=== PATIENT | female | born 1975 | race Caucasian/White ===

== ENCOUNTER 2019-09-30 07:23 | Emergency (ER) | payer OTHER ==
[~2019-09-30] VITALS: Ht 157.4 cm; Wt 74.0 kg
--- NOTE | 2019-09-30 07:36 | ED General ---
General Chief Complaint: Trauma-Non Activation Stated Complaint: HEAD INJ History of Present Illness Date Seen by Provider: Sep 30, 2019 Time Seen by Provider: 07:35 Initial Comments Patient is a 44 y/o female who comes to the ER this morning c/o head injury. Patient was getting into her car when she slipped and fell on a patch of ice. She states she struck her head on the car and then again on the pavement. She sustained minor trauma to the right parietal area. No LOC. No nausea, vomiting, vision changes since the accident which happened 40 minutes prior to this interview. She also c/o muscle spasm in the low back. 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 No numbness, tingling, weakness in extremities. No trauma of extremities. No injury to or break in skin. Allergies and Home Medications Allergies Coded Allergies: amoxicillin (Verified Allergy, Unknown, 09/30/19) clarithromycin (Verified Allergy, Unknown, 09/30/19) clavulanic acid (Verified Allergy, Unknown, 09/30/19) Home Medications Cyclobenzaprine HCl 10 Mg Tablet, 10 MG PO Q8H PRN for SPASMS Prescribed by: TALHA AGOSTO on 09/30/19 0800 Hydrocodone/Acetaminophen 1 Each Tablet, 1 TAB PO Q4-6HR Prescribed by: TALHA AGOSTO on 09/30/19 0832 Patient Home Medication List Home Medication List Reviewed: Yes Review of Systems Review of Systems Constitutional: no symptoms reported Respiratory: no symptoms reported Cardiovascular: no symptoms reported Musculoskeletal: see HPI, back pain, neck pain Skin: no symptoms reported All Other Systems Reviewed Negative Unless Noted: Yes Past Imvnkxb-Kanack-Auiyks Hx Patient Social History Recent [facility]: [facility] Physical Exam Vital Signs Vital Signs - First Documented 09/30/19 07:28 Temp 36.7 Pulse 60 Resp 16 B/P (MAP) 135/82 (99) Pulse Ox 100 O2 Delivery Room Air Capillary Refill : Height, Weight, BMI Height: '" Weight: lbs. oz. kg; BMI Method: General Appearance: No Apparent Distress, WD/WN Eyes: Bilateral Eye Normal Inspection, Bilateral Eye PERRL HEENT: PERRL/EOMI, Normal ENT Inspection, Other (hematoma of scalp over right parietal area) Neck: Full Range of Motion, Supple, Other (TTP over paraspinal cervical neck muscles) Respiratory: Lungs Clear, Normal Breath Sounds Cardiovascular: Regular Rate, Rhythm, No Edema Extremity: Normal Capillary Refill, Normal Range of Motion Neurologic/Psychiatric: Alert, Oriented x3 Skin: Normal Color Progress/Results/Core Measures Suspected Sepsis SIRS Temperature: Pulse: Respiratory Rate: Blood Pressure / Mean: Results/Orders My Orders Orders - TALHA AGOSTO DO Ibuprofen Tablet (Motrin Tablet) (09/30/19 07:45) Diazepam Tablet (Valium Tablet) (09/30/19 07:45) Ct Head/Cervical Spine Wo (09/30/19 07:44) Medications Given in ED Current Medications Medications Dose Ordered Sig/Kip Route Start Time Stop Time Status Last Admin Dose Admin Diazepam 5 mg ONCE ONCE PO 09/30/19 07:45 09/30/19 07:47 DC 09/30/19 07:59 5 MG Vital Signs/I&O 09/30/19 07:28 Temp 36.7 Pulse 60 Resp 16 B/P (MAP) 135/82 (99) Pulse Ox 100 O2 Delivery Room Air Capillary Refill : Progress Note : Time: 07:51 Progress Note Patient is seen and examined. No acute distress. Minor hematoma over scalp. She c/o some cervical neck pain and head pain. She also endorses prior MRI findings suggestive of intracranial bleed. Today, we will to CT scan of neck and head w/o contrast. Motrin and PO valium are ordered for discomfort. 08:30: Patient refused motrin as she has gastric sleeve. CT scans reviewed and no acute findings. Patient is discharged home with Rx for flexeril and a few norco. Recommended to f/u with PCP as needed. No driving/working while using these meds. All of her questions are answered prior to discharge home. Departure Impression Primary Impression: Fall due to ice or snow Additional Impression: Scalp hematoma Disposition: 01 HOME, SELF-CARE Condition: Improved Departure-Patient Inst. Referrals: ANGUS CHRISTIAN MD (PCP/Family) Primary Care Physician Scripts Hydrocodone/Acetaminophen ([place] 5-325 Tablet) 1 Each Tablet 1 TAB PO Q4-6HR for Pain MDD 10 TABS for 7 Days, #10 TAB Prov: TALHA AGOSTO DO 09/30/19 Cyclobenzaprine HCl (Cyclobenzaprine HCl) 10 Mg Tablet 10 MG PO Q8H PRN for SPASMS, #21 TAB 0 Refills Prov: TALHA AGOSTO DO 09/30/19 TALHA AGOSTO DO Sep 30, 2019 07:36
[2019-09-30] MEDS ORDERED: DIAZEPAM 5 MG (VALIUM) TABLET PO ONE (07:45)
[2019-09-30] MEDS ORDERED: IBUPROFEN 800 MG (MOTRIN) TAB PO ONE (07:45)
[2019-09-30] MEDS ORDERED: IBUP-1780 PO (08:00)
[2019-09-30] MEDS ORDERED: CYCL10TA9 PO (08:00)
--- NOTE | 2019-09-30 08:25 | Diagnostic Imaging Report ---
PROCEDURE: CT head and CT cervical spine without contrast. TECHNIQUE: Multiple contiguous axial images were obtained through the brain and cervical spine without the use of intravenous contrast. Sagittal and coronal reformations through the cervical spine were then performed. Auto Exposure Controls were utilized during the CT exam to meet ALARA standards for radiation dose reduction. INDICATION: Fall with head and neck injury. No prior studies are available for comparison. CT HEAD: The ventricles and sulci are within normal limits. No sulcal effacement, midline shift or hemorrhage is detected. Cisterns are patent. Visualized paranasal sinuses are clear. No calvarial fracture is seen. IMPRESSION: No acute intracranial process is detected. CT cervical spine: Alignment is normal. No fracture or subluxation is identified. Prevertebral tissues are within normal limits. Odontoid is intact. IMPRESSION: No acute bony abnormality is detected. Dictated by: Dictated on workstation # [id number]
[2019-09-30] MEDS ORDERED: HYDR-4226 PO (08:32)
[2019-09-30 08:38] VITALS: BP 137/78
== END 2019-09-30 08:38 | disposition home or self-care (01) ==
LOC: ER FS 07:25
DX: S00.03XA Contusion of scalp, initial encounter (principal); Z88.0 Allergy status to penicillin; Z88.1 Allergy status to other antibiotic agents; W00.0XXA Fall on same level due to ice and snow, initial encounter
CPT/HCPCS: 70450; 72125

== ENCOUNTER → 2021-07-25 | Outpatient (CLI) | payer OTHER ==
[~2021-07-25] MED LIST: CYCL10TA9 PO; HYDR-4226 PO; IBUP-1780 PO
--- NOTE | 2021-07-25 11:48 | Diagnostic Imaging Report ---
CLINICAL INDICATION: Patient with left flank pain that radiates to left lower quadrant since last night. Patient has history of kidney stones. Patient had kidney stone removal x2, cholecystectomy, and gastric sleeve. EXAM: CT exam of the abdomen and pelvis is performed without IV or oral contrast using stone protocol. Coronal and sagittal reformatted images were created. Auto Exposure Controls were utilized during the CT exam to meet ALARA standards for radiation dose reduction. COMPARISONS: None. FINDINGS: The visualized lung bases are clear. There are degenerative spurs involving the lumbar spine. The gallbladder is surgically absent. The liver, spleen, pancreas, and adrenal glands are unremarkable. There is a 4 mm in greatest axial dimension x 7 mm in craniocaudal dimension stone within the proximal left ureter seen at the L3 vertebral body level. There is fat stranding adjacent to the proximal left ureter and mild left hydronephrosis. There is a punctate calcification involving the inferior pole of the right kidney which may be intraparenchymal. There are no other urinary tract stones seen. There is an 11 mm exophytic cyst involving the posterior aspect of the right kidney. Otherwise, both kidneys are unremarkable. There is no intra-abdominal free air or free fluid. The bladder is partially fluid filled and unremarkable. There is fluid within the endometrium. There is a roughly 15 mm circumscribed low-density area involving the left ovary which may represent a cyst. Uterus and adnexal regions are otherwise unremarkable. The appendix is unremarkable. There is no intestinal obstruction. Postop changes to the stomach consistent with gastroplasty seen. The extra-abdominal and extrapelvic soft tissue structures are unremarkable. IMPRESSION: 1: There is a 7 mm stone within the proximal left ureter with adjacent periureteral fat stranding and mild left hydronephrosis. 2: There are no other stones in the ureters seen. There is a punctate calcification involving the inferior portion of the right kidney which may be within the parenchyma. 3: There is a small exophytic cyst involving the right kidney. 4: There is a small cyst involving the left ovary. Dictated by: Dictated on workstation # [id number]
== END ==
LOC: RAD FS 11:11
PROVIDERS: ATTEND Family Medicine
DX: N13.2 Hydronephrosis with renal and ureteral calculous obstruction (principal); N28.1 Cyst of kidney, acquired; N83.202 Unspecified ovarian cyst, left side
CPT/HCPCS: 74176

== ENCOUNTER → 2021-07-27 | Outpatient (CLI) | payer OTHER ==
[~2021-07-27] MED LIST changes: +ACHD5005 PO; +CIPR-226 PO; +KETO10TA PO; +NITR-65 PO; +TMSL.4C PO
--- NOTE | 2021-07-27 14:35 | Diagnostic Imaging Report ---
INDICATION: Left ureteral stone COMPARISON: CT dated 07/25/2021 TECHNIQUE: Single radiograph of the abdomen dated 07/27/2020 FINDINGS: Surgical clips are again identified overlying the upper abdomen bilaterally. Chain suture is again seen overlying the left upper abdomen. There is suggestion of a 6 mm calcification overlying the left L3 transverse process. Given size, shape, and location, this is favored to relate to previously noted left ureterolith. No additional calcifications seen along the expected course of the bilateral ureters. Bilateral phleboliths are again identified within the pelvis. Nonobstructive bowel gas pattern. No free air. No acute osseous abnormality with minimal scattered degenerative changes present. IMPRESSION: Suggestion of a 6 mm calcification overlying the left L3 transverse process, which is favored to relate to previously noted proximal left ureterolith. Additional stable postsurgical and chronic findings as above. Dictated by: Dictated on workstation # [id number]
== END ==
LOC: RAD 10:11
PROVIDERS: ATTEND Urology
DX: N20.1 Calculus of ureter (principal)
CPT/HCPCS: 74018

== ENCOUNTER 2021-07-30 05:43 | Outpatient (CLI) | payer OTHER ==
[~2021-07-30] VITALS: Ht 157.5 cm; Wt 80.8 kg
[~2021-07-30 05:43] MED LIST changes: -ACHD5005 PO; -CIPR-226 PO; -KETO10TA PO; -NITR-65 PO; -TMSL.4C PO
[2021-07-30] MEDS ORDERED: CIPR-226 PO (08:40)
[2021-07-30] MEDS ORDERED: TMSL.4C PO (08:40)
[2021-07-30] MEDS ORDERED: ACHD5005 PO (08:40)
[2021-07-31] MEDS ORDERED: KETO10TA PO (09:22)
[2021-07-31] MEDS ORDERED: TMSL.4C PO (09:22)
[2021-07-31] MEDS ORDERED: NITR-65 PO (09:22)
== END 2021-07-30 09:28 | disposition home or self-care (01) ==
LOC: PREOP 05:43
PROVIDERS: ATTEND Urology
DX: Z01.818 Encounter for other preprocedural examination (principal)

== ENCOUNTER 2021-07-31 06:10 | Day surgery (SDC) | payer OTHER ==
[2021-07-31] VITALS (11 sets, daily range): BP systolic 98–116; BP diastolic 59–82
[~2021-07-31] VITALS: Ht 157 cm; Wt 80.8 kg
[~2021-07-31 06:10] MED LIST changes: +ACHD5005 PO; +CIPR-226 PO; +TMSL.4C PO
[2021-07-31] MEDS: LACTATED RINGERS 1,000 ML IV PRN ×2 (06:35→07:48)
[2021-07-31] MEDS ORDERED: LIDOCAINE PF 2% 5 ML (XYLOCAINE) VIAL ONE (07:02)
[2021-07-31] MEDS ORDERED: ONDANSETRON 4 MG/2 ML (SDV) Z0FRAN ONE (07:02)
[2021-07-31] MEDS ORDERED: fentaNYL INJ 100 MCG/2 ML AMP ONE (07:02)
[2021-07-31] MEDS ORDERED: MIDAZOLAM 2 MG/2 ML (VERSED) VIAL ONE (07:02)
[2021-07-31] MEDS ORDERED: proPOfol 200 MG/20 ML (DIPRIVAN) VIAL IV ONE (07:02)
[2021-07-31] MEDS ORDERED: ROCURONIUM 10 MG/ML 5 ML SYRINGE IV ONE (07:02)
--- NOTE | 2021-07-31 07:05 | Progress Note-Pre Operative ---
Pre-Operative Progress Note H&P Reviewed The H&P was reviewed, patient examined and no changes noted. Date Seen by Provider: Jul 31, 2021 Time Seen by Provider: 07:05 Date H&P Reviewed: Jul 31, 2021 Time H&P Reviewed: 07:05 Pre-Operative Diagnosis: LT URETERAL STONE FREDERIC MCGINNIS MD Jul 31, 2021 07:05
--- NOTE | 2021-07-31 07:12 | Progress Note-Post Operative ---
Post-Operative Progess Note Surgeon (s)/Reclamation Supervisor (s) Surgeon FREDERIC MCGINNIS MD Reclamation Supervisor: NONE Pre-Operative Diagnosis LT URETERAL STONE Post-Operative Diagnosis SAME Procedure & Operative Findings Date of Procedure 07/31/21 Procedure Performed/Findings LT URETEROSCOPY AND INSERTION OF LT STENT Anesthesia Type GENERAL Estimated Blood Loss Estimated blood loss (mL): NONE Specimens/Packing Specimens Removed NONE Packing: NONE FREDERIC MCGINNIS MD Jul 31, 2021 07:12
--- NOTE | 2021-07-31 07:14 | Discharge Inst-Urology ---
Discharge Inst-Urology Reconcile Patient Problems Problems Reviewed?: Yes Final Diagnosis LT URETERAL STONE Patient Instructions/Follow Up Plan/Assessment/Instructions Please make appointment to been seen in office Monday 08/06, KUB prior to it. KUB on way home Increase oral fluids for 48 hours and then as needed. Diet and Activity as tolerated. If questions or concerns contact your physician Or seek help at emergency department. FREDERIC MCGINNIS MD Jul 31, 2021 07:14
--- NOTE | 2021-07-31 07:40 | Diagnostic Imaging Report ---
ABDOMEN/KUB 1VIEW INDICATION: Left ureteral stone COMPARISON: 07/27/2021 FINDINGS AND IMPRESSION: 1. The previously noted proximal left ureteral stone is not appreciated and could have passed or is obscured by overlying bowel gas. 2. Stable masslike staple line in the left upper quadrant associated with the stomach 3. Cholecystectomy clips. Dictated by: Dictated on workstation # [id number]
[2021-07-31] MEDS ORDERED: NEOSTIGMINE 3 MG/3 ML VIAL ONE (07:49)
[2021-07-31] MEDS ORDERED: GLYCOPYRROLATE 0.2 MG/ML (ROBINUL) 2 ML VIAL ONE (07:49)
[2021-07-31] MEDS ORDERED: SEVOFLURANE (ULTANE) 15 ML INHAL SOLN ONE (07:56)
[2021-07-31] MEDS ORDERED: morphine INJ 10 MG/ML 1ML (SYR OR VIAL) IVP ONE (08:15)
[2021-07-31] MEDS ORDERED: ONDANSETRON 4 MG/2 ML (SDV) Z0FRAN IVP PRN (08:15)
[2021-07-31] MEDS ORDERED: MEPERIDINE (DEMEROL) INJ 50 MG/ML IVP ONE (08:15)
[2021-07-31] MEDS ORDERED: KETO10TA PO (09:22)
[2021-07-31] MEDS ORDERED: TMSL.4C PO (09:22)
[2021-07-31] MEDS ORDERED: NITR-65 PO (09:22)
[2021-07-31] MEDS ORDERED: HYDROcodone/APAP 5 MG/325 MG (LORTAB) TAB PO ONE (10:00)
[2021-07-31] MEDS ORDERED: ONDANSETRON 4 MG/2 ML (SDV) Z0FRAN IVP ONE (10:00)
--- NOTE | 2021-07-31 10:10 | Diagnostic Imaging Report ---
EXAMINATION: ABDOMEN/KUB 1VIEW. INDICATION: Status post nephroureteral stent placement. COMPARISON: Earlier this same day at 6:54 AM. FINDINGS AND IMPRESSION: A nephroureteral stent has been placed on the left and has its proximal aspect in the region of the renal fossa and distal aspect in the region of the urinary bladder. There is question of mineralization along the proximal one/third of the ureter adjacent to the stent although this may be extrinsic to the ureter. Dictated by: Dictated on workstation # [id number]
--- NOTE | 2021-07-31 10:24 | Anesthesia-General Post-Op ---
General Patient Condition Mental Status/LOC: Same as Preop Cardiovascular: Satisfactory Nausea/Vomiting: Absent Respiratory: Satisfactory Pain: Controlled Complications: Absent Post Op Complications Complications None Follow Up Care/Instructions Patient Instructions None needed. Anesthesia/Patient Condition Patient Condition Patient is doing well, no complaints, stable vital signs, no apparent adverse anesthesia problems. No complications reported per nursing. DMITRIY ROQUE CRNA Jul 31, 2021 10:24
--- NOTE | 2021-07-31 15:30 | OPERATIVE REPORT ---
DATE OF SERVICE: 07/31/2021 PREOPERATIVE DIAGNOSIS: Left ureteral stone. POSTOPERATIVE DIAGNOSIS: Left ureteral stone. OPERATION PERFORMED: Cystoscopy, left ureteroscopy and insertion of left ureteral stent. SURGEON: Patel Mcginnis MD ANESTHESIA: General. COMPLICATIONS: None. DESCRIPTION OF PROCEDURE: Under satisfactory general anesthesia, the patient in lithotomy position, genitalia were prepped and draped in the usual sterile fashion. Cystoscope was introduced under vision. The bladder was normal except the ureteral orifices were pushed upward and laterally and she had vaginal prolapse. Using the foroblique lens, I dilated the left ureteral orifice intramural portion to accommodate a 6.9-[place] semirigid ureteroscope; however, I could not manipulate it through a curve in the distal ureter to pass it further proximally. We could not visualize the stone either by KUB preoperatively or fluoroscopy intraoperatively. So, I decided to go ahead and insert a stent to help straighten out the ureter, dilated, hopeful that the stone will pass around it, stabilize the situation and then in a week reevaluate. If she did not pass the stone, we will obtain KUB and/or CT to know exactly where the stone is and manage accordingly the following week. So, I went ahead and passed a 6-[place] 26 cm double-J stent and with some manipulation, I was able to pass it beyond the curve all the way up to the left renal pelvis guided fluoroscopically. We looked all along the stent and we could not visualize any calcification that could be amenable for ESWL with a stent in place. So, I stuck to my original plan. I emptied the bladder, removed the cystoscope. The patient tolerated the procedure and anesthesia well and was sent to recovery room in stable condition. Job ID: [id number] DocumentID: [id number] Dictated Date: 07/31/2021 07:55:45 Network Mgr Date: 07/31/2021 15:30:17 Dictated By: PATEL MCGINNIS MD
== END 2021-07-31 10:25 | disposition home or self-care (01) ==
LOC: SDC 06:10
PROVIDERS: ATTEND Urology
DX: N20.1 Calculus of ureter (principal); J30.2 Other seasonal allergic rhinitis; N28.1 Cyst of kidney, acquired; N83.202 Unspecified ovarian cyst, left side; Z88.1 Allergy status to other antibiotic agents; Z98.84 Bariatric surgery status; Z68.33 Body mass index [BMI] 33.0-33.9, adult; E66.9 Obesity, unspecified; Z11.2 Encounter for screening for other bacterial diseases
CPT/HCPCS: 52332; 74018; 76000; 84703; 87081; C2625

== ENCOUNTER → 2021-08-06 | Outpatient (CLI) | payer OTHER ==
[~2021-08-06] MED LIST changes: +KETO10TA PO; +NITR-65 PO
--- NOTE | 2021-08-06 15:32 | Diagnostic Imaging Report ---
INDICATION: Followup calculi. COMPARISON: 07/31/2021. FINDINGS: Two supine radiographic views of the abdomen and pelvis were obtained. A left-sided double-J ureteral stent is identified. Several calculi are again identified projecting over the pelvis bilaterally. No other unexpected extraosseous calcifications or radiopaque foreign bodies are seen. The small bowel loops are nondistended. There is no large collection of free intraperitoneal air. The osseous structures show no acute abnormalities. IMPRESSION: 1. Indwelling left-sided double-J ureteral stent. 2. Multiple extraosseous calcifications project over the pelvis. This may be on the basis of venous phleboliths. Distal ureteral or urinary bladder calculi are not entirely excluded Dictated by: Dictated on workstation # [id number]
== END ==
LOC: RAD 13:43
PROVIDERS: ATTEND Urology
DX: N20.1 Calculus of ureter (principal)
CPT/HCPCS: 74018

== ENCOUNTER 2022-09-29 13:39 | Emergency (ER) | payer OTHER ==
[~2022-09-29] VITALS: Ht 157 cm; Wt 82.9 kg
[~2022-09-29 13:39] MED LIST changes: +CYCL10TA25 PO; -CYCL10TA9 PO
[2022-09-29 13:51] VITALS: BP 133/70
--- NOTE | 2022-09-29 13:52 | ED Lower Extremity ---
General Stated Complaint: LEFT FOOT PAIN History of Present Illness Date Seen by Provider: Sep 29, 2022 Time Seen by Provider: 13:50 Initial Comments 47-year-old female presents with pain to the left little toe lateral aspect of her left foot. She reports earlier today that her kids stepped on it. She just wants to have it evaluated make sure is not broken. She has no other injuries or complaints Allergies and Home Medications Allergies Coded Allergies: clarithromycin (Verified Allergy, Severe, Shortness of Breath, 07/30/21) amoxicillin (Verified Allergy, Intermediate, Hives, 07/30/21) clavulanic acid (Verified Allergy, Intermediate, Hives, 07/30/21) Patient Home Medication List Home Medication List Reviewed: Yes Hydrocodone/Acetaminophen (Hydrocodone-Acetamin 5-325 mg) 1 Each Tablet, 1 TAB PO Q4H PRN for PAIN-MODERATE (5-7), (Reported) Entered as Reported by: ABA LEVIN on 07/30/21 0840 Ketorolac Tromethamine (Ketorolac Tromethamine) 10 Mg Tablet, 10 MG PO Q6H Prescribed by: LUIS MUNOZ on 07/31/21 09 Nitrofurantoin Monohyd/M-Cryst (Macrobid 100 mg Capsule) 100 Mg Capsule, 1 TAB PO BID Prescribed by: LUIS MUNOZ on 07/31/21921 Tamsulosin HCl (Flomax) 0.4 Mg Cap, 0.4 MG PO DAILY, (Reported) Entered as Reported by: ABA LEVIN on 07/30/21 0840 Tamsulosin HCl (Flomax) 0.4 Mg Cap, 0.4 MG PO DAILY PRN Prescribed by: LUIS MUNOZ on 07/31/21921 Review of Systems Constitutional: no symptoms reported EENTM: no symptoms reported Respiratory: no symptoms reported Cardiovascular: no symptoms reported Gastrointestinal: no symptoms reported Musculoskeletal: see HPI Skin: see HPI Past Igjgryc-Ouunyd-Onoyie Hx Immunizations Up To Date First/Initial COVID19 Vaccinat: DECEMBER 26, 2020 Second COVID19 Vaccination Giorgi: JANUARY 22, 2021 Seasonal Allergies Seasonal Allergies: Yes (WEEKLY ALLERGY SHOTS AT DR. ARELLANO'S OFFICE) Past Medical History Surgeries: Yes (ESWL X 2, GASTRIC SLEEVE, WISDOM TEETH) Gallbladder Respiratory: No Currently Using CPAP: No Currently Using BIPAP: No Cardiac: Yes (VASOVAGAL SYNCOPE) Syncope Neurological: No Genitourinary: No Gastrointestinal: No Musculoskeletal: No Endocrine: Yes (LINEAR SCLERODERMA) HEENT: No Cancer: No Psychosocial: No Integumentary: No Blood Disorders: No Physical Exam Vital Signs Vital Signs - First Documented 09/29/22 13:51 Temp 35.7 Pulse 71 Resp 16 B/P (MAP) 133/70 (91) Pulse Ox 100 O2 Delivery Room Air Capillary Refill : Height, Weight, BMI Height: '" Weight: lbs. oz. kg; 32.78 BMI Method: General Appearance: WD/WN, no apparent distress Cardiovascular: normal peripheral pulses, regular rate, rhythm Respiratory: lungs clear, normal breath sounds Feet: left foot ecchymosis, left foot soft tissue tenderness Neurologic/Psychiatric: normal mood/affect, oriented x 3 Skin: ecchymosis (Mild left little toe) Progress/Results/Core Measures Results/Orders My Orders Orders - ZAINA CAMACHO DO Foot 3 View Left (09/29/22 13:52) Vital Signs/I&O 09/29/22 13:51 Temp 35.7 Pulse 71 Resp 16 B/P (MAP) 133/70 (91) Pulse Ox 100 O2 Delivery Room Air Progress Progress Note : Progress Note Patient x-ray negative for any fractures or acute findings. Patient with a contusion. Discussed supportive care. She is stable and discharged Diagnostic Imaging Diagonstic Imaging: Xray Plain Films/CT/US/NM/MRI: other Comments Date of Exam:09/29/22 FOOT 3 VIEW LEFT INDICATION: Injury, pain COMPARISON: None available. TECHNIQUE: 3 radiographs left foot dated 09/29/2022. FINDINGS: No acute fracture or dislocation. No destructive osseous process. Mild scattered degenerative changes, including involving the 1st MTP joint as well as the 5th interphalangeal joints. The Lisfranc joint appears well aligned. Small plantar calcaneal enthesophyte. No suspicious radiopaque foreign body. IMPRESSION: No acute osseous abnormality with mild degenerative changes present. Reviewed: Reviewed by Me, Reviewed/Discussed Departure Impression Primary Impression: Contusion of left foot including toes Qualified Codes: S90.32XA - Contusion of left foot, initial encounter; S90.122A - Contusion of left lesser toe(s) without damage to nail, initial encounter Disposition: HOME, SELF-CARE Condition: Stable Departure-Patient Inst. Referrals: ANGUS CHRISTIAN MD (PCP/Family) Primary Care Physician Patient Instructions: Minor Contusion ED Add. Discharge Instructions: Ice as needed for pain, Tylenol ibuprofen as needed for pain. You may try Geoff wrap to see if it helps. Follow-up with your primary care provider if symptoms have not improved or worsen over the next 7 to 10 days ZAINA CAMACHO DO Sep 29, 2022 13:52
--- NOTE | 2022-09-29 14:14 | Diagnostic Imaging Report ---
INDICATION: Injury, pain COMPARISON: None available. TECHNIQUE: 3 radiographs left foot dated 09/29/2022. FINDINGS: No acute fracture or dislocation. No destructive osseous process. Mild scattered degenerative changes, including involving the 1st MTP joint as well as the 5th interphalangeal joints. The Lisfranc joint appears well aligned. Small plantar calcaneal enthesophyte. No suspicious radiopaque foreign body. IMPRESSION: No acute osseous abnormality with mild degenerative changes present. Dictated by: Dictated on workstation # [id number]
== END 2022-09-29 17:00 | disposition home or self-care (01) ==
LOC: EDUNIT# 13:39 → ER FS 13:41
DX: S90.122A Contusion of left lesser toe(s) without damage to nail, initial encounter (principal); W50.0XXA Accidental hit or strike by another person, initial encounter
CPT/HCPCS: 73630